=== PATIENT | male | born 1980 | race Caucasian/White ===

== ENCOUNTER 2019-11-24 18:14 | Emergency (ER) | payer BC, OTHER ==
[2019-11-24] MEDS ORDERED: Lidocaine 1% with EPINEPHrine 1:100,000 10 ML MDV INFILT ONE (18:15)
[2019-11-24] MEDS ORDERED: Diphtheria,Pertussis(Acell),Tetanus Vaccine 0.5 ML SDV IM ONE (19:25)
--- NOTE | 2019-11-24 19:31 | EDM.PDOC ---
ED HPI GENERAL MEDICAL PROBLEM - General Chief Complaint: Laceration Stated Complaint: CUT HAND Time Seen by Provider: 11/24/19 18:15 Source of Information: Reports: Patient History Limitations: Reports: No Limitations - History of Present Illness INITIAL COMMENTS - FREE TEXT/NARRATIVE: was cutting vegetables when he cut his finger , right index finger . Bleeding uncontrolled . Tetanus not UTD pt is not on anticoagulant Onset: Sudden Onset Date: 11/24/19 Duration: Hour(s): (1) Location: Reports: Upper Extremity, Right Associated Symptoms: Reports: No Other Symptoms Right Upper Finger-Thumb Pain Score (Numeric/FACES): 4 - Related Data Allergies Allergy/AdvReac Type Severity Reaction Status Date / Time No Known Allergies Allergy Verified 11/24/19 19:07 Home Meds: Home Meds Balsalazide [Colazal] 300 mg PO 11/24/19 [History] Past Medical History - Past Health History Medical/Surgical History: Denies Medical/Surgical History Psychiatric History: Reports: Depression Social & Family History - Recreational Drug Use Recreational Drug Use: No ED ROS GENERAL - Review of Systems Review Of Systems: Comprehensive ROS is negative, except as noted in HPI. ED EXAM, SKIN/RASH Exam: See Below Exam Limited By: No Limitations General Appearance: Alert, WD/WN Eye Exam: Bilateral Eye: EOMI Head: Atraumatic, Normocephalic Neck: Supple, Non-Tender Respiratory/Chest: No Respiratory Distress Extremities: Other (right index finger with laceration to the tip of the finger not involving the nail) Neurological: Alert, Oriented, CN II-XII Intact ED SKIN PROCEDURES - Laceration/Wound Repair Right Digit - 2nd (Index) Appearance: Superficial Distal NVT: Neuro & Vascular Intact Anesthetic Type: Digital Local Anesthesia - Lidocaine (Xylocaine): 1% with EPI Local Anesthetic Volume: 5cc Skin Prep: Chlorhexidine (Hibiciens) Exploration/Debridement/Repair: Other (bleeding noted ) Closed with: Sutures Lac/Wound length In cm: 0.5 (bleeding vessel noted) Suture Size: 5-0 (vicryl) Repaired with: Vicryl Sterile Dressing Applied: Nurse Tetanus Status Addressed: Yes Complications: No Progress/Comments: tubed gauze dressing applied . pt to Follow up in 2 days or if any other concerns Course - Vital Signs Last Recorded V/S: Last Vital Signs Temp 36.8 C 11/24/19 18:15 Pulse 77 11/24/19 18:15 Resp 16 11/24/19 18:15 BP 137/90 11/24/19 18:15 Pulse Ox - Orders/Labs/Meds Orders: Active Orders 24 hr Category Date Time Status Vaccines to be Administered [RC] PER UNIT ROUTINE Care 11/24/19 19:25 Ordered Diphth,Pertuss(Acell),Tet Vac [Adacel] Med 11/24/19 19:25 Once 0.5 ml IM .ONCE ONE Departure - Departure Time of Disposition: 17:35 Disposition: Home, Self-Care 01 Condition: Fair Clinical Impression: Laceration of finger of right hand - Discharge Information *PRESCRIPTION DRUG MONITORING PROGRAM REVIEWED*: Not Applicable *COPY OF PRESCRIPTION DRUG MONITORING REPORT IN PATIENT RASHIDA: Not Applicable Instructions: Delayed Wound Closure Referrals: PCP,None [Primary Care Provider] - Additional Instructions: Keep area clean and dry Change dressing after 48 hrs Follow for wound check with any signs of infection : pain , redness , swelling discharge. Sepsis Event Note - Evaluation Sepsis Screening Result: No Definite Risk - Focused Exam Vital Signs: Vital Signs Temp Pulse Resp BP 11/24/19 18:15 36.8 C 77 16 137/90 Date Exam was Performed: 11/24/19 Time Exam was Performed: 19:26 - My Orders Last 24 Hours: My Active Orders 11/24/19 19:25 Vaccines to be Administered [RC] PER UNIT ROUTINE Diphth,Pertuss(Acell),Tet Vac [Adacel] 0.5 ml IM .ONCE ONE - Assessment/Plan Last 24 Hours: My Active Orders 11/24/19 19:25 Vaccines to be Administered [RC] PER UNIT ROUTINE Diphth,Pertuss(Acell),Tet Vac [Adacel] 0.5 ml IM .ONCE ONE
== END 2019-11-24 19:55 | disposition home or self-care (01) ==
LOC: FB.ED 18:14
DX: S61.210A Laceration without foreign body of right index finger without damage to nail, initial encounter (principal); Z23 Encounter for immunization; W26.8XXA Contact with other sharp object(s), not elsewhere classified, initial encounter
CPT/HCPCS: 12001; 90471; 90715; 99282

== ENCOUNTER 2020-12-07 14:37 | Emergency (ER) | payer BC ==
[2020-12-07] MEDS ORDERED: Sodium Chloride 0.9% 1,000 ML IV SCH (14:45)
--- NOTE | 2020-12-07 15:10 | EDM.PDOC ---
ED HPI GENERAL MEDICAL PROBLEM - General Chief Complaint: Abdominal Pain Stated Complaint: POSSIBLE ANEMIA Time Seen by Provider: 12/07/20 14:55 Source of Information: Reports: Patient History Limitations: Reports: No Limitations - History of Present Illness INITIAL COMMENTS - FREE TEXT/NARRATIVE: pt has ulcerative colitis last week had rountine screening colonoscopy with multiple biopsies on 11/30 States he was feeling well till yesterday when he decided to go and have a drink: 5 beers from about 6 pm About 9 pm he developed sudden urge to have BM and on going almost passed out had to lay on bathroom floor , was diaphoretic, sweating a lot at the time (had dark colored stools , large amount ) got up from bathroom floor after a while, then sat on recliner , felt the urge to go again went and had BM same dark / bloody . After that fell asleep This am had another episode with vomiting, still black tarry stool has lower abd cramps, weakness and lightheadedness last Hgb 11/01/2020 was 14.7 has had crohn's for 20 yrs and has never had episode similar to this one , had not had exacerbation of symptoms for > 5 yrs Called GI and was told to come in Onset: Gradual Onset Date: 12/06/20 Duration: Day(s): (2), Getting Worse Location: Reports: Abdomen Quality: Reports: Ache, Dull Severity: Moderate Improves with: Reports: None Worsens with: Reports: None Context: Reports: Activity Associated Symptoms: Reports: Diaphoresis, Malaise, Weakness - Related Data Allergies Allergy/AdvReac Type Severity Reaction Status Date / Time No Known Allergies Allergy Verified 11/24/19 20:12 Home Meds: Home Meds Balsalazide [Colazal] 300 mg PO 11/24/19 [History] Past Medical History - Past Health History Medical/Surgical History: Denies Medical/Surgical History Psychiatric History: Reports: Depression ED ROS GENERAL - Review of Systems Review Of Systems: See Below Constitutional: Reports: Malaise, Weakness, Fatigue HEENT: Reports: No Symptoms Respiratory: Reports: No Symptoms Cardiovascular: Reports: No Symptoms. Denies: Palpitations Endocrine: Reports: Fatigue GI/Abdominal: Reports: Hematochezia, Melena. Denies: Abdominal Pain, Anorexia, Diarrhea, Mucous in Stool, Nausea : Reports: No Symptoms Musculoskeletal: Reports: No Symptoms Skin: Reports: No Symptoms Neurological: Reports: No Symptoms Psychiatric: Reports: No Symptoms Hematologic/Lymphatic: Reports: No Symptoms Immunologic: Reports: No Symptoms ED EXAM, GI/ABD - Physical Exam Exam: See Below Exam Limited By: No Limitations General Appearance: Alert, WD/WN, No Apparent Distress, Other (pale) Eyes: Bilateral: EOMI, Pale Conjunctiva Ears: Normal External Exam Throat/Mouth: Normal Oropharynx Head: Atraumatic, Normocephalic Neck: Supple, Non-Tender Respiratory/Chest: Lungs Clear, Normal Breath Sounds Cardiovascular: Normal Peripheral Pulses, Regular Rate, Rhythm GI/Abdominal Exam: Soft, Non-Tender, No Organomegaly. No: Distended, Abnormal Bowel Sounds Back Exam: Normal Inspection, Full Range of Motion Extremities: Normal Range of Motion, Non-Tender, No Pedal Edema Neurological: Alert, Oriented, CN II-XII Intact, Normal Cognition Psychiatric: Normal Affect Skin Exam: Warm, Dry, Intact Lymphatic: No Adenopathy Course - Vital Signs Last Recorded V/S: Last Vital Signs Temp 36.9 C 12/07/20 15:03 Pulse 70 12/07/20 15:03 Resp 16 12/07/20 15:03 BP 143/86 H 12/07/20 15:03 Pulse Ox 100 12/07/20 15:03 - Orders/Labs/Meds Orders: Active Orders 24 hr Category Date Time Status Sodium Chloride 0.9% [Normal Saline] 1,000 ml Med 12/07/20 14:45 Active IV ASDIRECTED Medication Orders Sodium Chloride (Normal Saline) 1,000 mls @ 999 mls/hr IV ASDIRECTED NICOLETTE Last Admin: 12/07/20 15:40 Dose: 999 mls/hr Documented by: MARCE Labs: Laboratory Tests 12/07/20 12/07/20 12/07/20 Range/Units 15:08 15:08 15:08 WBC 8.9 (3.2-10.1) x10-3/uL RBC 3.96 (3.90-5.90) x10(6)uL Hgb 11.7 L (12.9-17.7) g/dL Hct 34.2 L (38.3-50.1) % MCV 86.4 (80.8-98.7) fL MCH 29.4 (27.0-33.3) pg MCHC 34.1 (28.7-35.3) g/dL RDW 13.9 (12.4-15.0) % Plt Count 413 (117-477) x10(3)uL MPV 8.5 (6.7-11.0) fL Neut % (Auto) 65.2 (40.3-71.8) % Lymph % (Auto) 23.5 (15.8-45.3) % [place] % (Auto) 9.7 (5.5-15.2) % Eos % (Auto) 1.0 (0.1-6.8) % Baso % (Auto) 0.6 (0.3-3.8) % Neut # (Auto) 5.8 (1.7-6.9) x10-3/uL Lymph # (Auto) 2.1 (0.5-4.5) x10-3/uL [place] # (Auto) 0.9 (0.0-1.2) x10-3/uL Eos # (Auto) 0.1 (0.0-0.6) x10-3/uL Baso # (Auto) 0.1 (0.0-0.3) x10-3/uL Sodium 141 (135-145) mmol/L Potassium 3.9 (3.5-5.3) mmol/L Chloride 101 (100-110) mmol/L Carbon Dioxide 27 (21-32) mmol/L BUN 18 (7-18) mg/dL Creatinine 1.0 (0.70-1.30) mg/dL Est Cr Clr Drug Dosing TNP Estimated GFR (MDRD) > 60 (>60) BUN/Creatinine Ratio 18.0 (9-20) Glucose 109 (80-116) mg/dL Lactic Acid (0.4-2.0) mmol/L Calcium 8.6 (8.6-10.2) mg/dL Total Bilirubin 0.3 (0.1-1.3) mg/dL AST 15 (5-25) IU/L ALT 25 (12-36) U/L Alkaline Phosphatase 98 (56-112) IU/L C-Reactive Protein 0.5 (0.5-0.9) mg/dL Total Protein 7.2 (6.0-8.0) g/dL Albumin 3.7 (3.5-5.2) g/dL Globulin 3.5 g/dL Albumin/Globulin Ratio 1.1 Blood Type Gel Antibody Screen 12/07/20 12/07/20 Range/Units 15:08 15:55 WBC (3.2-10.1) x10-3/uL RBC (3.90-5.90) x10(6)uL Hgb (12.9-17.7) g/dL Hct (38.3-50.1) % MCV (80.8-98.7) fL MCH (27.0-33.3) pg MCHC (28.7-35.3) g/dL RDW (12.4-15.0) % Plt Count (117-477) x10(3)uL MPV (6.7-11.0) fL Neut % (Auto) (40.3-71.8) % Lymph % (Auto) (15.8-45.3) % [place] % (Auto) (5.5-15.2) % Eos % (Auto) (0.1-6.8) % Baso % (Auto) (0.3-3.8) % Neut # (Auto) (1.7-6.9) x10-3/uL Lymph # (Auto) (0.5-4.5) x10-3/uL [place] # (Auto) (0.0-1.2) x10-3/uL Eos # (Auto) (0.0-0.6) x10-3/uL Baso # (Auto) (0.0-0.3) x10-3/uL Sodium (135-145) mmol/L Potassium (3.5-5.3) mmol/L Chloride (100-110) mmol/L Carbon Dioxide (21-32) mmol/L BUN (7-18) mg/dL Creatinine (0.70-1.30) mg/dL Est Cr Clr Drug Dosing Estimated GFR (MDRD) (>60) BUN/Creatinine Ratio (9-20) Glucose (80-116) mg/dL Lactic Acid 1.0 (0.4-2.0) mmol/L Calcium (8.6-10.2) mg/dL Total Bilirubin (0.1-1.3) mg/dL AST (5-25) IU/L ALT (12-36) U/L Alkaline Phosphatase (56-112) IU/L C-Reactive Protein (0.5-0.9) mg/dL Total Protein (6.0-8.0) g/dL Albumin (3.5-5.2) g/dL Globulin g/dL Albumin/Globulin Ratio Blood Type A NEGATIVE Gel Antibody Screen Negative Meds: Medications Generic Name Dose Route Start Last Admin Trade Name Freq PRN Reason Stop Dose Admin Sodium Chloride 1,000 mls @ 999 mls/hr 12/07/20 14:45 12/07/20 15:40 Normal Saline IV 999 mls/hr ASDIRECTED NICOLETTE Administration Discontinued Medications Generic Name Dose Route Start Last Admin Trade Name Freq PRN Reason Stop Dose Admin Diatrizoate Meglum/Diatrizoate Sod 30 ml 12/07/20 16:35 12/07/20 17:42 Diatrizoate Meglumine/Diatrizoate Sodium 37% 30 Ml Bottle PO 12/07/20 16:36 30 ml . DIRECTED ONE Administration Iopamidol 100 ml 12/07/20 16:35 12/07/20 17:43 Iopamidol 755 Mg/Ml 100 Ml Bottle IV 12/07/20 16:36 100 ml . DIRECTED ONE Administration - Re-Assessments/Exams Free Text/Narrative Re-Assessment/Exam: 12/07/20 15:50 pt ahd labs done IVF started CT of the abdomen ordered Reviewed Hgb 11.7 ( 14.7 11/01/2020 before colonoscopy) pt has significant drop in Hgb Currently not symptomatic , will monitor for any more bleed 12/07/20 15:[address] abd with pt : negative for perforation or signs of flare up of ulcerative colitis 12/07/20 18:[address] Bledsoe ( GI [facility]) he recommends Since bleeding is slowing down to monitor pt for now . Pt does not have flare up of Ulcerative colitis ( pt states symptoms do not resemble a flare up). discussed same with pt and he shows understanding : clear liquids till thursday when he has appt with GI Will return to ER ( [facility] ) if he has a bout of bright red bloody diarrhea , or if symptoms get worse 12/07/20 18:38 Departure - Departure Time of Disposition: 18:50 Disposition: Home, Self-Care 01 Clinical Impression: Lower gastrointestinal hemorrhage, Status post colonoscopy Ulcerative colitis, chronic Qualifiers: Digestive disease complication type: without complication Anemia Qualifiers: Anemia type: other cause - Discharge Information *PRESCRIPTION DRUG MONITORING PROGRAM REVIEWED*: Not Applicable *COPY OF PRESCRIPTION DRUG MONITORING REPORT IN PATIENT RASHIDA: Not Applicable Instructions: Lower Gastrointestinal Bleeding Referrals: Fede Parrish PA [Primary Care Provider] - Forms: ED Department Discharge Additional Instructions: 1) Liquid diet till seen on thursday 2) If bloody diarrhea is noted ( like yesterday) you will need to return to the ER 3) Continue with medication for Ulcerative colitis 4) keep appointment with strategic marketing manager on thursday 5) Call with any other concerns Sepsis Event Note (ED) - Focused Exam Vital Signs: Vital Signs Temp Pulse Resp BP Pulse Ox 12/07/20 15:03 36.9 C 70 16 143/86 H 100 - My Orders Last 24 Hours: My Active Orders 12/07/20 14:45 Sodium Chloride 0.9% [Normal Saline] 1,000 ml IV ASDIRECTED - Assessment/Plan Last 24 Hours: My Active Orders 12/07/20 14:45 Sodium Chloride 0.9% [Normal Saline] 1,000 ml IV ASDIRECTED
[2020-12-07] MEDS ORDERED: Diatrizoate Meglumine/Diatrizoate Sodium 37% 30 ML Bottle PO ONE (16:35)
[2020-12-07] MEDS ORDERED: Iopamidol 755 Mg/ML 100 ML Bottle IV ONE (16:35)
--- NOTE | 2020-12-07 18:42 | CT ---
INDICATION: Lower GI bleed. Postcolonoscopy and biopsy. History of ulcerative colitis. Bloody stool last night with black tarry stools. CT ABDOMEN AND PELVIS WITH CONTRAST: Spiral 3.75 mm axial sections were obtained through the abdomen and pelvis with oral and IV contrast (100 mL [id number]-[id number] at 2 mL/second) with sagittal and coronal reconstructions 12/07/20 - no comparisons. Total exam DLP was 1159.14 mGy-cm. The lower lung adames and pleural spaces visualized appeared normal. The heart did not appear enlarged. No definite pericardial effusion was seen. The liver appeared to be normal in size with no focal defect suggested. Gallbladder was unremarkable. The adrenal glands, kidneys, pancreas, and spleen, appear normal. No retroperitoneal mass was seen. The prostate did not appear enlarged. Urinary bladder was unremarkable. The appendix appeared normal, visualized on axial images 76-83 without evidence of appendicitis. No evidence of free air or bowel obstruction was identified. No extravasation of oral contrast was noted. No evidence of ventral or inguinal hernia was noted. IMPRESSION: Essentially normal CT abdomen and pelvis with oral and IV contrast. Report was called to Dr. Montelongo at 1812 hours 12/07/2020. [facility]
== END 2020-12-07 18:51 | disposition home or self-care (01) ==
LOC: FB.ED 14:37
DX: K51.90 Ulcerative colitis, unspecified, without complications (principal); K92.2 Gastrointestinal hemorrhage, unspecified; Z98.890 Other specified postprocedural states; D64.89 Other specified anemias
CPT/HCPCS: 36415; 74177; 80053; 82272; 82962; 83605; 85025; 86140; 86850; 86900; 86901; 99285; J7030; Q9963; Q9967